=== PATIENT | female | born 1950 | race Caucasian/White ===

== ENCOUNTER 2021-11-13 10:52 | Outpatient (CLI) | payer MEDICARE ==
[2021-11-14 11:35] LABS: SARS-CoV-2 PCR by NAA Not Detected (NotDetected)
== END 2021-11-13 10:53 | disposition home or self-care (01) ==
LOC: CSHLAB 10:52
PROVIDERS: ATTEND Internal Medicine Cardiovascular Disease
DX: Z20.822 Contact with and (suspected) exposure to COVID-19 (principal)
CPT/HCPCS: U0003; U0005

== ENCOUNTER 2021-11-17 13:29 | Outpatient (CLI) | payer MEDICARE, MEDICAID | END 2021-11-17 13:30 | disposition home or self-care (01) | LOC: CSHCP 13:29 | PROVIDERS: ATTEND Internal Medicine Cardiovascular Disease | DX: I48.19 Other persistent atrial fibrillation (principal) | CPT/HCPCS: 94150; 94729; 94760 ==

== ENCOUNTER 2022-04-02 14:15 | Outpatient (CLI) | payer MEDICARE, MEDICAID ==
[2022-04-03 00:02] LABS: SARS-CoV-2 PCR by NAA Not Detected (NotDetected)
== END 2022-04-02 14:16 | disposition home or self-care (01) ==
LOC: CSHLAB 14:15
PROVIDERS: ATTEND Internal Medicine Critical Care Medicine
DX: Z20.822 Contact with and (suspected) exposure to COVID-19 (principal)
CPT/HCPCS: U0003; U0005

== ENCOUNTER 2022-04-05 14:12 | Outpatient (CLI) | payer OTHER, MEDICAID | END 2022-04-05 14:13 | disposition home or self-care (01) | LOC: CSHCP 14:12 | PROVIDERS: ATTEND Internal Medicine Critical Care Medicine | DX: J44.9 Chronic obstructive pulmonary disease, unspecified (principal) | CPT/HCPCS: 94060; 94726; 94729; 94760 ==